=== PATIENT | male | born 1965 | race Hispanic/Latino ===

== ENCOUNTER 2019-11-19 07:12 | Outpatient (CLI) | payer OTHER ==
--- NOTE | 2019-11-19 07:46 | ULT ---
ULTRASOUND ABDOMEN COMPLETE: DATE: 11/19/2019 HISTORY: 54-year-old male with right-sided abdominal pain FINDINGS: Gallbladder: Normal wall thickness. No evidence of pericholecystic fluid, gallstones, or sludge. Liver: Diffusely increased echogenicity, consistent with fatty liver. Common duct caliber: 5 mm. Bilateral kidneys: No hydronephrosis. Pancreas: Tail and distal body obscured by shadowing from bowel gas. Abdominal aorta: No aneurysm Inferior vena cava: Unremarkable where visualized. Spleen: No splenomegaly IMPRESSION: 1) Hepatic steatosis. 2) no other pathology identified. 3) pancreas incompletely visualized.
== END 2019-11-19 07:13 | disposition home or self-care (01) ==
LOC: BICULT 07:12
PROVIDERS: ATTEND Family Medicine
DX: R10.9 Unspecified abdominal pain (principal); K76.0 Fatty (change of) liver, not elsewhere classified
CPT/HCPCS: 93975

== ENCOUNTER 2023-03-19 06:59 | Outpatient (CLI) | payer BC | END 2023-03-19 07:00 | disposition home or self-care (01) | LOC: BICULT 06:59 | PROVIDERS: ATTEND Internal Medicine Gastroenterology | DX: R10.13 Epigastric pain (principal); R35.0 Frequency of micturition; F10.10 Alcohol abuse, uncomplicated; R07.9 Chest pain, unspecified; K76.89 Other specified diseases of liver | CPT/HCPCS: 76705 ==

== ENCOUNTER 2023-05-22 08:32 | Outpatient (CLI) | payer BC | END 2023-05-22 08:33 | disposition home or self-care (01) | LOC: MRI 08:32 | PROVIDERS: ATTEND Internal Medicine Gastroenterology | DX: R10.13 Epigastric pain (principal); K21.9 Gastro-esophageal reflux disease without esophagitis; K29.70 Gastritis, unspecified, without bleeding; B96.81 Helicobacter pylori [H. pylori] as the cause of diseases classified elsewhere; R93.89 Abnormal findings on diagnostic imaging of other specified body structures; K76.0 Fatty (change of) liver, not elsewhere classified; K82.8 Other specified diseases of gallbladder; Z86.010 Personal history of colon polyps | CPT/HCPCS: 74183 ==